=== PATIENT | male | born 1955 | race Caucasian/White ===

== ENCOUNTER → 2016-11-04 | Outpatient (CLI) | payer SELFPAY ==
[~2016-11-04] MED LIST: ANDROGEL2.5 GM TOP; CELEBREX PO; METFORMIN HCL500 M1 PO; METFORMIN HCL500 M2 PO; PHENERGAN25 MG PO; TIMOPTIC 0.5% OP5 M1 OD; ZETIA PO
== END | disposition home or self-care (01) ==
LOC: CBAR 09:27
DX: E66.01 Morbid (severe) obesity due to excess calories (principal)
CPT/HCPCS: 76000